=== PATIENT | female | born 1965 | race Caucasian/White ===

== ENCOUNTER 2025-05-16 13:51 | Outpatient (CLI) | payer BC | END 2025-05-16 13:52 | disposition home or self-care (01) | LOC: CSHMAMMO 13:51 | PROVIDERS: ATTEND Obstetrics & Gynecology | DX: Z12.31 Encounter for screening mammogram for malignant neoplasm of breast (principal); Z85.828 Personal history of other malignant neoplasm of skin; Z98.82 Breast implant status | CPT/HCPCS: 77063; 77067 ==